=== PATIENT | female | born 1975 | race Caucasian/White ===

== ENCOUNTER → 2023-09-03 12:18 | Outpatient (REF) | payer BC, SELFPAY | LOC: RAD 12:18 | PROVIDERS: ATTENDING PHYSICIAN Family Medicine | DX: M54.31 Sciatica, right side (principal) | CPT/HCPCS: 72110 ==

== ENCOUNTER → 2023-12-04 09:46 | Outpatient (REF) | payer BC, SELFPAY | LOC: WDC 09:46 | PROVIDERS: ATTENDING PHYSICIAN Nurse Practitioner Family | DX: N63.21 Unspecified lump in the left breast, upper outer quadrant (principal) | CPT/HCPCS: 76642 ==

== ENCOUNTER 2025-01-07 22:49 | Emergency (ER) | payer BC, SELFPAY ==
[2025-01-07 22:54] VITALS: BP 136/99
[2025-01-08 00:13] VITALS: BP 141/86
[2025-01-08 00:14] VITALS: BMI 26.0
[2025-01-08 01:00] VITALS: BP 112/73
[2025-01-08 02:00] VITALS: BP 123/81
--- NOTE | 2025-01-08 02:46 | ED.GENMED ---
History of Present Illness
General
Chief Complaint: Blood Pressure Problem
Source: patient and family
Exam Limitations: none
Time Seen by Provider: 01/08/25 02:33
Nursing documentation reviewed up to this point in time: agreed with
History of Present Illness
History of Present Illness:
49-year-old female presents to the emergency department with headache. She states that she gets headaches every 2 weeks. She typically takes Ativan for the headaches. Tonight she decided that she did not want to take the Ativan because she was
'looking for something different '. She states that her headache is mild. She did have some vomiting tonight but that has resolved. She states that she was concerned because her blood pressure was elevated and that typically triggers her
headache. It was 151 systolic at home. Patient states that as the blood pressure improved so did the headache. She has followed with her family doctor for this for years. Denies any other symptoms. Denies neck pain
Past History
Past History
ED Past Medical History: Asthma, Hypercholesterolemia and Other (Ectopic )
ED Past Surgical History: Other (Hernia surgery. Sinus surgery.)
Social History
Tobacco: Non-smoker
Alcohol: None
Drug: None
Living: with family
Family History
Family History: Other
Review of Systems
Review of Systems
Allergies reviewed?: Yes
All Other Systems: ROS reviewed and negative except as documented in HPI and ROS
Constitutional: Reports no symptoms
EENT: Reports no symptoms
Respiratory: Reports no symptoms
Cardiac: Reports no symptoms
ABD/GI: Reports nausea and vomiting
: Reports no symptoms
Musculoskeletal: Reports no symptoms
Skin: Reports no symptoms
Neurological: Reports headache
Endocrine: Reports no symptoms
Hematologic/Lymphatic: Reports no symptoms
Psychiatric: Reports anxiety
Phy Exam
General Physical Exam
General Presentation: well appearing and no apparent distress
General Skin: warm and dry
General Habitus: normal
General Mental: alert
General Hydration: appears well hydrated
ENT Exam
ENT Exam: EOMI, pharynx normal, neck supple, normocephalic and other (No nuchal rigidity)
Eye Exam
Eye Exam: PERRL, cornea clear and conjunctiva normal
Cardiovascular Exam
Cardiovascular Exam: regular rate/rhythm, no edema, no murmur and normal peripheral pulses
Pulmonary Exam
Pulmonary Exam: lungs clear, no respiratory distress, no rales, no crackles, no rhonchi, no stridor, no wheezing and no cough
Gastrointestinal Exam
Gastrointestinal Exam: normal bowel sounds, non tender, soft, no organomegaly, no pulsatile mass and non distended
Neurological Exam
Neurological Exam: alert, oriented x3, no motor deficits and speech normal
Musculoskeletal Exam
Musculoskeletal Exam: full ROM and no edema
Skin Exam
Skin Exam: normal color, warm/dry, no rash and no petechia
Psychiatric Exam
Psychiatric Exam: normal mood/affect
Course
Orders/Labs/Results
Orders:
Orders
01/08/25 02:45
0.9% Sodium Chloride 1000 ml [Nss] 1,000 ml IV BOLUS
Dexamethasone Sod Phosphate [Decadron] 10 mg IV NOW STA
Diphenhydramine [Benadryl] 25 mg IV NOW STA
Ketorolac [Toradol] 15 mg IV NOW STA
Metoclopramide [Reglan] 10 mg IV NOW STA
01/08/25 02:57
Complete Blood Count/With Diff Urgent
Comprehensive Metabolic Panel Urgent
Erythrocyte Sed Rate Urgent
PTT Urgent
Prothrombin Time Urgent
Abnormal Lab Results
01/08/25
02:57
Hgb 10.6 L g/dL
(12.0-16.0)
Hct 33.3 L %
(37.0-47.0)
MCV 66.1 L fL
(81.0-99.0)
MCH 21.0 L pg
(27.0-31.0)
MCHC 31.8 L g/dL
(33.0-37.0)
RDW 16.6 H %
(11.5-14.5)
Abs Immat Gran (auto) 0.1 H 10^3/uL
(0-0.05)
Absolute Neuts (auto) 7.3 H 10^3/uL
(1.4-6.5)
Chloride 108 H mmol/L
(98-107)
Creatinine 0.5 L mg/dL
(0.6-1.0)
Glucose 109 H mg/dl
(70-99)
01/08/25 02:57
01/08/25 02:57
Vital Signs
Initial and Last Documented VS:
Initial Vital Signs
Temp Pulse Resp BP Pulse Ox
98.5 F 73 18 136/99 98
01/07/25 22:54 01/07/25 22:54 01/07/25 22:54 01/07/25 22:54 01/07/25 22:54
Last Documented Vital Signs
Temp Pulse Resp BP Pulse Ox
98.5 F 73 18 123/76 95
01/07/25 22:54 01/07/25 22:54 01/07/25 22:54 01/08/25 03:00 01/08/25 03:30
*Pulse Oximetry
Patient hypoxic: no (95% on room air)
*Critical Care Note
Total Time (30-74mins, 75-104mins- exclusive of procedures): Not Applicable
Update Note
Update Note:
4:30 AM: Patient awakened from sleep stating that she is feeling much better and wishes to be discharged home. She denies nausea or headache. Will follow-up with her family doctor.
ED Attending Note
-
Portions of this chart may have been created with voice recognition software.� Occasional wrong word or��sound alike� substitutions may have occurred due to the inherent limitations of voice recognition software.
Discharge Plan
Departure
Patient Disposition: Home (Routine Discharge)
Date of Disposition: 01/08/25
Time of Disposition: 04:35
Patient with high blood pressure during this ER visit?: Yes
Condition: Good
Discharge Problem:
Headache, Nausea & vomiting
Prescriptions:
No Action
acetaminophen [Tylenol Extra Strength] 500 MG tablet
500 mg PO Q4HPRN PRN (Reason: mild pain)
ferrous sulfate [FeroSul] 325 MG tablet
325 mg PO Q72H
olopatadine [Patanol] 1 DROP drops
1 drp BOTH EYES DAILYPRN PRN (Reason: dry/irritated eyes)
albuterol sulfate 1 PUFF HFA aerosol inhaler
1 puff inhalation R Q4HPRN PRN (Reason: sob/wheeze)
fluticasone propionate 1 SPRAY spray,suspension
1 spray intranasal DAILYPRN PRN (Reason: nasal congestion)
fexofenadine [Linda] 180 MG tablet
180 mg PO HS
cholecalciferol (vitamin D3) 2,000 UNITS tablet
2,000 units PO DAILY Qty: 30 0RF
fluticasone propionate [Flovent HFA] 1 PUFF HFA aerosol inhaler
1 puff inhalation BID
ascorbic acid (vitamin C) [Vitamin C] 500 MG tablet
1,000 mg PO DAILY
esomeprazole magnesium [Nexium] 40 MG capsule,delayed release(DR/EC)
40 mg PO DAILY
vitamin B complex 1 TAB tablet
1 tab PO DAILY
oxycodone 5 MG tablet
5 mg PO Q4HPRN PRN (Reason: moderate pain) Qty: 5 0RF
albuterol sulfate [Proventil HFA] 90 MCG/PUFF HFA aerosol inhaler
1 puff inhalation Q4HPRN PRN (Reason: shortness of breath) Qty: 1 0RF
Referrals:
UNKNOWN - PT DOES,NOT KNOW [Family Provider]
Filemon Domingo MD [Active, Neurology]
Activity Restrictions/Additional Instructions:
Thank You for choosing [facility].
It was a pleasure meeting you and taking part in your care. We hope for your continued healing and wellness.
Please read discharge instructions in their entirety. However, they are for general education and may not describe your exact diagnosis at discharge. Information on your ER visit and medical conditions were discussed with you along with appropriate
follow up information...
If indicated, please take your medications as instructed and indicated on discharge paperwork.
Please schedule a follow up appointment as directed. Call to schedule an appointment
Please return to the emergency department with ANY change in, persisting, or worsening of symptoms. If any of your symptoms do not improve, or persist, or become more severe within 6-12 hours, please return to the emergency department for further
care.
Please return to the emergency department if you develop a headache, neck pain/stiffness, fever greater than 100.4F, chest pain, shortness of breath, persistent nausea, vomiting, slurred speech, difficulty walking, numbness/tingling, weakness, signs
of infection or any other symptoms that are worrisome to you.
If you have any questions or concerns please do not hesitate to call the Hospital at or E-mail me directly at [email or web address]
Interventions
Interventions:
*Risk Screen - Suicide Last Done: 01/07/25 22:54
*General Assessment Last Done: 01/07/25 22:54
*Neglect/Abuse Screening Last Done: 01/07/25 22:54
*ED- Fall Risk Assessment Last Done: 01/07/25 22:54
*ED COVID-19 Vaccine History Last Done: 01/07/25 22:54
ED- Cardiac Assessment Last Done: 01/08/25 00:14
ED- Neurological Assessment Last Done: 01/08/25 00:14
ED- Pulmonary Assessment Last Done: 01/08/25 00:14
Discharge Date and Time
Print Language: [place]
[2025-01-08 03:00] VITALS: BP 123/76
[2025-01-08] MEDS: NSS 1000 IV (03:05)
[2025-01-08] MEDS: TORADOL 15 MG IV (03:06)
[2025-01-08] MEDS: REGLAN 10 MG IV (03:06)
[2025-01-08] MEDS: DECADRON 10 MG IV (03:06)
[2025-01-08] MEDS: BENADRYL 25 MG IV (03:07)
[2025-01-08 03:19] LABS: % Basophils 0.7 % (0-2); % Immature Granulocytes 0.5 % (0-0.5); % Lymphocytes 21.2 % (20.5-51.1); % Monocytes 3.4 % (1.7-9.3); % Neutrophils 73.2 % (42.2-75.2); Absolute Basophils 0.1 10^3/uL (0-0.2); Absolute Eosinophils 0.1 10^3/uL (0-0.7); Absolute Immature Granulocytes 0.1 10^3/uL (0-0.05); Absolute Lymphocytes 2.1 10^3/uL (1.2-3.4); Absolute Monocytes 0.3 10^3/uL (0.1-0.6); Absolute Neutrophils 7.3 10^3/uL (1.4-6.5); Hematocrit 33.3 % (37.0-47.0); Hemoglobin 10.6 g/dL (12.0-16.0); Mean Corp Hgb Conc. 31.8 g/dL (33.0-37.0); Mean Corpuscular Volume 66.1 fL (81.0-99.0); Mean Platelet Volume 9.6 fL (7.4-10.4); Nucleated Red Blood Cells % 0 %; Platelet Count 321 10^3/uL (130-400); Red Blood Cell Count 5.04 10^6/uL (4.20-5.40); Red Cell Dist. Width 16.6 % (11.5-14.5)
[2025-01-08 03:24] LABS: INR 1.07; PT 14.2 Sec (11.4-14.6)
[2025-01-08 03:25] LABS: APTT 32.8 Sec (23.4-35.0)
[2025-01-08 03:26] LABS: Erythrocyte Sed Rate 8 mm/hour (0-20)
[2025-01-08 03:30] LABS: ALT (SGPT) 16 U/L (0-35); AST (SGOT) 19 U/L (14-36); Albumin 4.3 g/dl (3.5-5.0); Alkaline Phosphatase 67 U/L (38-126); Blood Urea Nitrogen 7 mg/dl (7-17); Calcium 9.7 mg/dl (8.4-10.2); Carbon Dioxide 25 mmol/L (22-30); Chloride 108 mmol/L (98-107); Estimated Creatinine Clearance 114 ml/min; Glucose 109 mg/dl (70-99); Potassium 4.1 mmol/L (3.5-5.1); Sodium 140 mmol/L (135-145); Total Bilirubin 0.4 mg/dl (0.2-1.3); Total Protein 7.2 g/dl (6.3-8.2); eGFR > 60.00
[2025-01-08 04:00] VITALS: BP 106/68
== END 2025-01-08 04:51 | disposition home or self-care (01) ==
LOC: EMR 22:49
PROVIDERS: EMERGENCY PHYSICIAN Student in an Organized Health Care Education/Training Program
DX: R51.9 Headache, unspecified (principal); R11.2 Nausea with vomiting, unspecified; E78.00 Pure hypercholesterolemia, unspecified; J45.909 Unspecified asthma, uncomplicated
CPT/HCPCS: 96374; 96375; 96361; 99284; 80053; 85025; 85610; 85652; 85730

== ENCOUNTER 2025-06-02 13:31 | Emergency (ER) | payer BC, SELFPAY ==
[2025-06-02 13:35] VITALS: BP 147/90
--- NOTE | 2025-06-02 15:10 | ED.GENMED ---
History of Present Illness
General
Chief Complaint: Generalized Pain
Source: patient
Exam Limitations: none
Time Seen by Provider: 06/02/25 14:59
History of Present Illness
History of Present Illness:
50yoF with a history of hyperlipidemia and asthma presenting for evaluation after a fall. Patient was shopping at [place] last night around 9:30 PM when she slipped on water. She states she fell like a 'potato sack' onto her right side. She denies
any head strike. Patient has multiple complaints including left knee pain, bilateral hip pain, low back pain, right sided neck pain, and right shoulder pain. She took Tylenol and ibuprofen [id number] for symptoms. No pleuritic pain or
shortness of breath. No headache. She does not take any blood thinners.
Past History
Past History
ED Past Medical History: Asthma, Hypercholesterolemia and Other (Ectopic )
ED Past Surgical History: Other (Hernia surgery. Sinus surgery.)
Social History
Tobacco: Non-smoker
Alcohol: None
Drug: None
Living: with family
Family History
Family History: Other
Phy Exam
General Physical Exam
General Presentation: well appearing and no apparent distress
General Skin: warm and dry
General Habitus: normal
General Mental: alert
ENT Exam
ENT Exam: normocephalic and other (No external signs of head trauma. +Tenderness to cervical portion of R trapezius muscle. No midline spinous process tenderness. )
Cardiovascular Exam
Cardiovascular Exam: normal peripheral pulses (2+ PT pulses bilaterally. )
Pulmonary Exam
Pulmonary Exam: lungs clear, no respiratory distress, no rales, no crackles, no rhonchi and no wheezing
Neurological Exam
Neurological Exam: alert
[place] Coma Scale
Eye Opening: Spontaneous
Verbal Response: Oriented
Motor Response: Obeys Commands
GCS Total Score: 15
Musculoskeletal Exam
Musculoskeletal Exam: no edema (No swelling to R shoulder. ROM mildly decreased but elicits pain. ) and other (Small contusion noted to anterior L knee with tenderness. No deformity. ROM mildly decreased. )
Skin Exam
Skin Exam: normal color and warm/dry
Psychiatric Exam
Psychiatric Exam: normal mood/affect
Course
Orders/Labs/Results
Orders:
Orders
06/02/25 15:09
Ibuprofen [Motrin] 600 mg PO NOW STA
CR Knee - Left 4 Or More View* Urgent
Comment:
Reason For Exam: pain, fall
CR Shoulder, Trauma - Right Urgent
Reason For Exam: fall
Lumbar Spine Complete, 4 View [CR Lumbar Spine Comp Min 4 Vw*] Urgent
Comment:
Reason For Exam: low back pain, fall
Pelvis, 1 or 2 Views CR [CR Pelvis - 1 Or 2 Views ] Urgent
Comment:
Reason For Exam: bilateral hip pain, fall
Vital Signs
Initial and Last Documented VS:
Initial Vital Signs
Temp Pulse Resp BP Pulse Ox
98 F 81 16 147/90 98
06/02/25 13:35 06/02/25 13:35 06/02/25 13:35 06/02/25 13:35 06/02/25 13:35
Last Documented Vital Signs
Temp Pulse Resp BP Pulse Ox
98 F 71 16 138/74 98
06/02/25 13:35 06/02/25 17:27 06/02/25 17:27 06/02/25 17:27 06/02/25 17:27
MDM/Problems Addressed
Differential Diagnosis Includes:
50yoF here after a mechanical fall last night. Denies head injury and headache. Multiple complaints including R shoulder pain, bilateral hip pain, L knee pain. Small contusion noted to L anterior knee without other external signs of trauma. She is
awake, alert, with a GCS of 15. Differential diagnosis includes: contusion, sprain, fracture
Pelvic x-rays, lumbar spine x-rays, L knee x-rays, and R shoulder x-rays ordered which are negative for fractures/acute osseous abnormalities. Patient stable for discharge. Supportive care discussed. She was advised to follow-up with orthopedics
or her PCP with any persistent symptoms.
*Pulse Oximetry
SaO2: 98
Oxygen Mode of Delivery: Room air
Patient hypoxic: no
*Critical Care Note
Total Time (30-74mins, 75-104mins- exclusive of procedures): Not Applicable
ED Attending Note
-
Portions of this chart may have been created with voice recognition software.� Occasional wrong word or��sound alike� substitutions may have occurred due to the inherent limitations of voice recognition software.
Discharge Plan
Departure
Patient Disposition: Home (Routine Discharge)
Date of Disposition: 06/02/25
Time of Disposition: 17:24
Patient with high blood pressure during this ER visit?: Yes
Discharge Problem:
Fall from slip, trip, or stumble, Left knee pain, Cervical strain
Instructions: Muscle, joint, and bone pain (DC)
Prescriptions:
No Action
acetaminophen [Tylenol Extra Strength] 500 MG tablet
500 mg PO Q4HPRN PRN (Reason: mild pain)
ferrous sulfate [FeroSul] 325 MG tablet
325 mg PO Q72H
olopatadine [Patanol] 1 DROP drops
1 drp BOTH EYES DAILYPRN PRN (Reason: dry/irritated eyes)
albuterol sulfate 1 PUFF HFA aerosol inhaler
1 puff inhalation R Q4HPRN PRN (Reason: sob/wheeze)
fluticasone propionate 1 SPRAY spray,suspension
1 spray intranasal DAILYPRN PRN (Reason: nasal congestion)
fexofenadine [Linda] 180 MG tablet
180 mg PO HS
cholecalciferol (vitamin D3) 2,000 UNITS tablet
2,000 units PO DAILY Qty: 30 0RF
fluticasone propionate [Flovent HFA] 1 PUFF HFA aerosol inhaler
1 puff inhalation BID
ascorbic acid (vitamin C) [Vitamin C] 500 MG tablet
1,000 mg PO DAILY
esomeprazole magnesium [Nexium] 40 MG capsule,delayed release(DR/EC)
40 mg PO DAILY
vitamin B complex 1 TAB tablet
1 tab PO DAILY
oxycodone 5 MG tablet
5 mg PO Q4HPRN PRN (Reason: moderate pain) Qty: 5 0RF
albuterol sulfate [Proventil HFA] 90 MCG/PUFF HFA aerosol inhaler
1 puff inhalation Q4HPRN PRN (Reason: shortness of breath) Qty: 1 0RF
Referrals:
Allen Fry MD [Family Provider, Family Practice]
Ronald Gunn MD [Active, Orthopedics]
Activity Restrictions/Additional Instructions:
Apply ice to affected area and rest. Take Tylenol and ibuprofen as needed for pain.
Please follow-up with orthopedics if your symptoms persist. Return to the ER with any new or worsening symptoms.
Interventions
Interventions:
*Risk Screen - Suicide Last Done: 06/02/25 13:35
*General Assessment Last Done: 06/02/25 15:24
*Neglect/Abuse Screening Last Done: 06/02/25 13:35
*ED- Fall Risk Assessment Last Done: 06/02/25 15:24
*ED COVID-19 Vaccine History Last Done: 06/02/25 15:24
*ED Influenza Vaccine History Last Done: 06/02/25 15:24
*Nursing Disposition Last Done: 06/02/25 17:27
Discharge Date and Time
Discharge Date/Time: 06/02/25 17:29
Print Language: [place]UB[place]
[2025-06-02] MEDS: MOTRIN 600 MG PO (15:21)
[2025-06-02 16:07] VITALS: BP 141/87
[2025-06-02 17:27] VITALS: BP 138/74
== END 2025-06-02 17:29 | disposition home or self-care (01) ==
LOC: EMR 13:31
PROVIDERS: EMERGENCY PHYSICIAN Emergency Medicine; FAMILY PHYSICIAN Family Medicine
DX: S16.1XXA Strain of muscle, fascia and tendon at neck level, initial encounter (principal); M25.562 Pain in left knee; W01.0XXA Fall on same level from slipping, tripping and stumbling without subsequent striking against object, initial encounter; E78.00 Pure hypercholesterolemia, unspecified; J45.909 Unspecified asthma, uncomplicated; Z87.59 Personal history of other complications of pregnancy, childbirth and the puerperium
CPT/HCPCS: 99283; 72110; 72170; 73030; 73564